=== PATIENT | male | born 1965 | race Caucasian/White ===

== ENCOUNTER 2016-07-01 04:05 | Emergency (ER) | payer OTHER ==
[2016-07-01 04:28] VITALS: TEMP 98.4; BMI 24.2
[2016-07-01] MEDS ORDERED: NS 1,000 ML IV ONE (04:29)
[2016-07-01] MEDS ORDERED: MORPHINE 4 MG/ML INJECTION IV ONE (04:29)
[2016-07-01] MEDS ORDERED: ONDANSETRON HCL 4 MG/2 ML VIAL IV ONE (04:29)
--- NOTE | 2016-07-01 04:31 | EDPRACDOC ---
- General Information Chief Complaint: Headache Stated Complaint: MIGRAINE, SWEATS Time Seen by Provider: 07/01/16 04:25 Information Source: Patient Mode Of Arrival: Car Home Medications: Home Medications Aspirin [Chewable Aspirin] 81 mg PO DAILY 08/10/12 Carvedilol [Coreg] 12.5 mg PO BID 08/10/12 Clopidogrel Bisulfate [Clopidogrel] 75 mg PO DAILY 08/10/12 Famotidine [Pepcid] 40 mg PO DAILY 08/10/12 Isosorbide Mononitrate [Isosorbide Mononitrate ER] 60 mg PO DAILY 08/10/12 Losartan Potassium [Cozaar] 50 mg PO DAILY 08/10/12 Nifedipine [Nifedipine ER] 30 mg PO DAILY 08/10/12 Pravastatin [Pravachol] 20 mg PO HS 08/10/12 Propranolol HCl [Inderal LA, Innopran Xl] 80 mg PO DAILY 08/10/12 Topiramate 100 mg PO BID 08/10/12 Hydrocodone Bit/Acetaminophen [Hydrocodon-Acetaminoph 7.5-300] 1 tab PO Q6H PRN 04/30/13 Nitroglycerin Sublingual Tab [NTG (NitroStat Sublingual Tab)] 1 tab SL Q10MIN PRN 04/30/13 Ibuprofen Tablet [Motrin] 800 mg PO TID #30 tab 10/10/15 Promethazine [Phenergan] 25 mg PO Q8H PRN #30 tab 11/01/15 Hydrocodone/Acetaminophen [Lortab 5-325 mg Tablet] 1 each PO Q4H PRN #15 tablet 07/01/16 Ondansetron [Zofran Odt] 4 mg PO Q6H PRN #10 tab.rapdis 07/01/16 Allergies/Adverse Reactions: Allergies Allergy/AdvReac Type Severity Reaction Status Date / Time amitriptyline Allergy Severe See Verified 11/01/15 06:34 Comments - History of Present Illness Onset: [employer] HPI: PT HAS A HX OF MIGRAINES AND DEVELOPED ONE LAST EVENING. PT HAS BEEN VOMITING ALL NIGHT. PT SAID THIS ALCOCER IS TYPICAL FOR HIS MIGRAINES. PT'S FATHER THIS WEEK AND THE WAS ON 06/28. IT HAS BEEN A VERY STRESSFUL WEEK. Location: Reports: Generalized Pain Quality: Reports: Moderate Prior work up: Reports: CT, MRI, Neurologist Associated Signs and Symptoms: Reports: Frequent Headaches ED Past Medical History - Patient Medical History Neurological History: Reports: Migraine Cardiac History: Reports: Hypertension (10 YEARS), Heart Attack (2010), Cardiac Catheterization (2X 2010, ), Hypercholesterolemia Psychological History: Denies: Depression Systemic History: Denies: Cancer Surgical History: Reports: Cardiac Catheterization (2010, ) - Family Medical History Reports: Cancer (DAD- BLADDER CANCER), Cardiac Disorders (GRANDFATHER, DAD, GRANDMOTHER). Denies: Hypertension, Diabetes, Stroke - Social Medical History Smoking Status: Never smoker ETOH: None Substance Abuse: None Lives With: Spouse Lives In: Home EDM Review of Systems - Review of Systems ROS Negative Except as Marked: Yes All systems reviewed and were negative except as marked Constitutional: Other ("SWEATS") Gastrointestinal: Vomiting Neurological: Headache - Physical Exam Constitutional: Alert (Awake), No apparent distress Oriented to: Time, Person, Place Last recorded Vital Signs: Last Vital Signs Temp 98.4 F 07/01/16 04:24 Pulse 89 07/01/16 04:24 Resp 20 07/01/16 04:24 BP 122/70 07/01/16 04:24 Pulse Ox 96 07/01/16 04:24 Oxygen Pulse Oxygen Saturation 96 O2 Device Room Air Oxygen Flow Rate Fraction of Inspired Oxygen ( FIO2) - HEENT Head: Normal ( normocephalic) Eye Exam: Normal (PERRL, EOMI, Sclera white) Oropharynx: Normal (Pharynx:Moist without exudate,Gums-no swelling) ENT EAC: Normal TMJ: Normal Nose: No Symptoms Reported (septum midline) Neck: Normal (FROM, trachea at midline) - Respiratory/Cardiovascular Respiratory: Normal - CTA (BBS clear to auscultation without adventitious sounds ) Cardiovascular: Normal (RRR without murmur, gallop or rub) - GI Auscultation: Normal (NABS) Palpation: Normal (Soft,No rebound or guarding, non distended) Tenderness: Non tender Martinez's Sign: Negative - Musculoskeletal Back: Normal (Non-Tender) Extremities: Normal (Normal tone, Pulses 2+ No cyanosis or edema, FROM) - Integumentary Skin: Normal, Warm, Dry Lymphatics: Normal (no adenopathy) - Neurologic Memory Impaired: Normal Motor Function: Normal (Normal tone, Pulses 2+ No cyanosis or edema, FROM) Cranial Nerve: Normal (CN II-X11 intact sensation, strength 5/5) Cerebellar: Normal Mood Description: Normal Thought: Coherent Perception: Normal - Results 07/01/16 04:47 07/01/16 04:47 - EKG EKG #1 EKG Time: 05:02 -: Yes EKG interpreted by me Rate: bpm: 70 [place]: Normal Rhythm: NSR Block: None Hypertrophy: None ST: Normal Decision Time to Discharge: 05:35 - Departure Yes I personally saw and evaluated the patient. Disposition: Home Condition: Fair Final Diagnosis: Headache Instructions: Acute Headache (ED) Education/Counseling Given To: Patient Education/Counseling Given Regarding: Diagnosis, Treatment, Follow Up Referrals: Edward Bryant MD [Primary Care Provider] - One Week Bryan Anders MD [Staff Physician] - One Week Prescriptions: New Hydrocodone/Acetaminophen [Lortab 5-325 mg Tablet] 1 each PO Q4H PRN #15 tablet PRN Reason: Pain Ondansetron [Zofran Odt] 4 mg PO Q6H PRN #10 tab.rapdis PRN Reason: Nausea/Vomiting No Action Famotidine [Pepcid] 40 mg PO DAILY Nifedipine [Nifedipine ER] 30 mg PO DAILY Aspirin [Chewable Aspirin] 81 mg PO DAILY Propranolol HCl [Inderal LA, Innopran Xl] 80 mg PO DAILY Topiramate 100 mg PO BID Isosorbide Mononitrate [Isosorbide Mononitrate ER] 60 mg PO DAILY Clopidogrel Bisulfate [Clopidogrel] 75 mg PO DAILY Carvedilol [Coreg] 12.5 mg PO BID Pravastatin [Pravachol] 20 mg PO HS Losartan Potassium [Cozaar] 50 mg PO DAILY Hydrocodone Bit/Acetaminophen [Hydrocodon-Acetaminoph 7.5-300] 1 tab PO Q6H PRN PRN Reason: Pain Nitroglycerin Sublingual Tab [NTG (NitroStat Sublingual Tab)] 1 tab SL Q10MIN PRN PRN Reason: Chest Pain Or Discomfort Ibuprofen Tablet [Motrin] 800 mg PO TID #30 tab Promethazine [Phenergan] 25 mg PO Q8H PRN #30 tab PRN Reason: Nausea/Vomiting Forms: Excuse Note
[2016-07-01 04:57] LABS: AUTOMATED BASOPHIL 1.1 % (0-2); AUTOMATED EOSINOPHIL 2.8 % (0-5); AUTOMATED LYMPH 6.6 % (17-44); AUTOMATED NEUTROPHIL 81.5 % (45-76); MPV 9.2 fL (7.4-10.4)
[2016-07-01 05:06] LABS: BLOOD UREA NITROGEN 25 MG/DL (9-20); CALCIUM 8.6 MG/DL (8.4-10.2); CALCULATED OSMOLALITY 276 MOs/Kg (270-290); CHLORIDE 106 mEq/L (98-107); GLUCOSE 122 MG/DL (70-99); SODIUM LEVEL 141 mEq/L (137-146)
[2016-07-01] MEDS ORDERED: HYDROmorphone 1 MG INJECTION IV ONE (05:20)
[2016-07-01 06:15] VITALS: BP 109/72; PULSE 68
== END 2016-07-01 06:05 | disposition home or self-care (01) ==
LOC: ED 04:05
DX: R51 Headache (principal)
CPT/HCPCS: 36415; 80053; 84484; 85025; 93005; 96361; 96374; 96375; 99283; J1170; J2270; J2405